=== PATIENT | female | born 1975 | race Caucasian/White ===

== ENCOUNTER 2020-09-14 18:14 | Emergency (ER) | payer OTHER, SELFPAY ==
--- NOTE | ~2020-09-14 | XR_ITS ---
EXAMINATION: XR chest 1V portable DATE: 09/14/2020 21:57 INDICATION: Shortness of breath. TECHNIQUE: A single frontal view of the chest was obtained. COMPARISON: Chest single view 07/30/2018 FINDINGS: The chest demonstrates clear lungs without pneumonia, pleural effusion, or pneumothorax. Th e heart size is normal. IMPRESSION: 1. No acute cardiopulmonary disease. Reviewed, dictated and finalized at location A. DENTIAL PROGRAM DIRECTOR
[2020-09-14 18:16] VITALS: BP 152/94; PULSE 116; RESP 20; TEMP 35.7; O2SAT 95
--- NOTE | 2020-09-14 18:19 | ECG_ITS ---
Measurements Intervals [place] Rate: 110 P: 56 [place]: 162 QRS: 53 QRSD: 73 T: 66 QT: 320 QTc: 433 Interpretive Statements SINUS TACHYCARDIA BASELINE WANDER- AVR, AVF, V1-V6 ABNORMAL ECG Electronically Signed On 09-15-2020 8:18:37 CLIP WRAPPER by Ras Wu D.O.
[2020-09-14 18:35] LABS: Basophils Absolute Auto 0.2 K/mm3 (0.0-0.1); Basophils Percent Auto 1.9 % (0.2-1.2); Eosinophils Percent Auto 8.9 % (0-4.4); Hematocrit 38.8 % (37.0-47.0); Hemoglobin 11.9 g/dL (12.0-15.0); Immature Granulocyte Absolute 0.05 K/mm3 (0.00-0.031); Immature Granulocyte Percent A 0.4 % (0-0.5); Lymphocytes Absolute Auto 3.77 K/mm3 (0.9-3.2); Lymphocytes Percent Auto 33.3 % (18.3-44.2); Mean Corpuscular HGB Conc 30.7 g/dl (32-36); Mean Corpuscular Hemoglobin 19.3 pg (26-34); Mean Corpuscular Volume 62.8 fl (80-100); Mean Platelet Volume 9.6 fl (7.4-10.4); Monocytes Percent Auto 9.2 % (2.6-8.5); Neutrophils Absolute Auto 5.3 K/mm3 (1.3-6.7); Neutrophils Percent Auto 46.3 % (45.5-73.1); Platelet Count Result 353 k/mm3 (150-375); Red Blood Count 6.18 M/mm3 (4.2-5.4); Red Cell Distribution Width 17.9 % (11.5-14.5); White Blood Count 11.3 K/mm3 (4.5-10.0)
[2020-09-14 18:47] LABS: Anion Gap 9 mmol/L (8-16); Blood Urea Nitrogen 9 mg/dL (7-17); Carbon Dioxide 25 mmol/L (22-30); Chloride 104 mmol/L (98-107); Estimated CRCL calculation 96 ml/min; Estimated Glomerular Filt Rate > 60; Glucose 106 mg/dL (65-105); Potassium 3.8 mmol/L (3.4-5.0); Sodium 138 mmol/L (137-145)
[2020-09-14] MEDS: ALBUTEROL SULFATE NEB 2.5 MG/0.5 ML INH 10 MG INHALATION (20:02)
[2020-09-14] MEDS: IPRATROPIUM BR 0.02% INH SOLN 0.5 MG/2.5 ML VIAL 1 MG INHALATION (20:02)
--- NOTE | 2020-09-14 20:08 | ED.SOB ---
HPI - SOB/Dyspnea General Chief Complaint: Shortness of Breath/Dyspnea Stated Complaint: Difficulty breathing Time Seen by Provider: 09/14/20 19:41 Related Data Allergies Allergy/AdvReac Type Severity Reaction Status Date / Time SHELLFISH Allergy Unknown Rash Uncoded 09/14/20 18:18 Review of Systems Review of Systems: All systems reviewed & are unremarkable except as noted in HPI and below Constitutional: Constitutional: Denies chills and Denies fever(s) ENT: Reports nasal congestion Cardiovascular: Cardiovascular: Denies chest pain and Denies radiating jaw, neck or arm pain Respiratory: Respiratory: Reports cough, Reports dyspnea and Reports wheezing Gastrointestinal: Gastrointestinal: Denies abdominal pain, Denies diarrhea, Denies nausea and Denies vomiting Integumentary/Breasts: Skin/Breast: Reports rash PMFSH Past Medical History Medical History (Updated 09/14/20 @ 20:08 by Evelyn Huynh MD) Asthma Surgical History Surgical History (Updated 09/14/20 @ 20:10 by Evelyn Huynh MD) H/O: hysterectomy History of back surgery Social History Social History (Updated 09/14/20 @ 20:11 by Evelyn Huynh MD) Smoking packs per day: 1 Smoking cigarettes per day: 20.0 Smoking status: Current every day smoker Substance use: never Exam Const: General: alert and ill appearing Orientation/consciousness: patient oriented x3 HENMT: Head: normocephalic and atraumatic Face and sinus: face symmetric Throat: posterior oropharynx normal Eyes: EOM: EOMs intact bilaterally Chest: Chest palpation & inspection: normal inspection of the chest Resp: Effort & Inspection: no retractions, tachypneic and no use of accessory muscles Auscultation: wheezes expiratory wheezes Other: able to speak in complete sentences Cardio: Rate: regular rate Rhythm: regular rhythm Heart sounds: no murmurs GI: GI Palp: Yes Soft to palpation, No Tenderness to palpation present (GI), No Guarding due to palpation present (GI) and No Rigid due to palpation Auscultation: normal bowel sounds Neuro: General: patient oriented x3 and moves all extremities Extrem: General: no pedal edema Course Vital Signs Vital signs: Vital Signs Temperature 96.3 F L 09/14/20 18:16 Pulse Rate 116 H 09/14/20 18:16 Respiratory Rate 20 09/14/20 18:16 Blood Pressure 152/94 H 09/14/20 18:16 Pulse Oximetry 95 09/14/20 18:16 Temperature 96.3 F L 09/14/20 18:16 Pulse Rate 116 H 09/14/20 18:16 Respiratory Rate 20 09/14/20 18:16 Blood Pressure 152/94 H 09/14/20 18:16 Pulse Oximetry 95 09/14/20 18:16 MDM - SOB/Dyspnea Lab Data Result diagrams: 09/14/20 18:28 09/14/20 18:28 Labs: Lab Results 09/14/20 09/14/20 Range/Units 18:28 18:28 WBC 11.3 H (4.5-10.0) K/mm3 RBC 6.18 H (4.2-5.4) M/mm3 Hgb 11.9 L (12.0-15.0) g/dL Hct 38.8 (37.0-47.0) % MCV 62.8 L (80-100) fl MCH 19.3 L (26-34) pg MCHC 30.7 L (32-36) g/dl RDW 17.9 H (11.5-14.5) % Plt Count 353 (150-375) k/mm3 MPV 9.6 (7.4-10.4) fl Immature Gran % (Auto) 0.4 (0-0.5) % Neut % (Auto) 46.3 (45.5-73.1) % Lymph % (Auto) 33.3 (18.3-44.2) % Butler % (Auto) 9.2 H (2.6-8.5) % Eos % (Auto) 8.9 H (0-4.4) % Baso % (Auto) 1.9 H (0.2-1.2) % Lymph # (Auto) 3.77 H (0.9-3.2) K/mm3 Butler # (Auto) 1.0 H (0.1-0.6) K/mm3 Eos # (Auto) 1.0 H (0-0.3) K/mm3 Baso # (Auto) 0.2 H (0.0-0.1) K/mm3 Abs Immat Gran (auto) 0.05 H (0.00-0.031) K/mm3 Absolute Neuts (auto) 5.3 (1.3-6.7) K/mm3 Absolute Nucleated RBC 0.0 (0.0-0.012) K/mm3 Nucleated RBC % 0.0 (0.0-0.2) % Sodium 138 (137-145) mmol/L Potassium 3.8 (3.4-5.0) mmol/L Chloride 104 (98-107) mmol/L Carbon Dioxide 25 (22-30) mmol/L Anion Gap 9 (8-16) mmol/L BUN 9 (7-17) mg/dL Creatinine 0.70 (0.7-1.0) mg/dL Estim Creat Clear Calc 96 ml/min Estimated GFR > 60 (59 - ) Gl
--- NOTE | 2020-09-14 20:12 | ED.SOB ---
HPI - SOB/Dyspnea General Chief Complaint: Shortness of Breath/Dyspnea Stated Complaint: Difficulty breathing Time Seen by Provider: 09/14/20 19:41 Source: patient Mode of arrival: ambulatory Limitations: no limitations History of Present Illness HPI Narrative: This patient is a 45 year old female smoker with history of asthma, COPD who presents for evaluation of shortness of breathing. She reports she has been dealing with a cough and shortness of breathing for 3 months. She has been dealing with her PCP over the phone and he has been prescribing her steroids and antibiotics for a diagnosis of bronchitis. Her symptoms seem to have worsened over the past few weeks. Over the past 2 nights she has been unable to sleep. She states she wakes up shortness of breath and coughing. She was able to check her oxygen and she reports her saturation was 76% and it roberto to 91%. She states she does not have covid. She denies fever, chills, nausea, vomiting, chest pain or diarrhea. Related Data Allergies Allergy/AdvReac Type Severity Reaction Status Date / Time SHELLFISH Allergy Unknown Rash Uncoded 09/14/20 18:18 Review of Systems Review of Systems: All systems reviewed & are unremarkable except as noted in HPI and below Constitutional: Constitutional: Denies chills and Denies fever(s) ENT: Reports nasal congestion Cardiovascular: Cardiovascular: Denies chest pain Respiratory: Respiratory: Reports cough, Reports dyspnea and Reports wheezing Gastrointestinal: Gastrointestinal: Denies abdominal pain, Denies diarrhea, Denies nausea and Denies vomiting PMFSH Past Medical History Medical History (Updated 09/15/20 @ 00:00 by Pelon Ocasio) Asthma Surgical History Surgical History (Updated 09/14/20 @ 20:10 by Evelyn Huynh MD) H/O: hysterectomy History of back surgery Social History Social History (Updated 09/14/20 @ 20:11 by Evelyn Huynh MD) Smoking packs per day: 1 Smoking cigarettes per day: 20.0 Smoking status: Current every day smoker Substance use: never Exam Const: General: alert Orientation/consciousness: patient oriented x3 HENMT: Head: normocephalic and atraumatic Face and sinus: face symmetric Mouth: Yes Normal oral and palatal mucosa present, Yes lip normal, Yes oropharynx normal and Yes moist mucous membranes Eyes: EOM: EOMs intact bilaterally Chest: Chest palpation & inspection: normal inspection of the chest Resp: Effort & Inspection: no retractions, tachypneic and no use of accessory muscles Auscultation: wheezes Cardio: Rate: regular rate Rhythm: regular rhythm Heart sounds: no murmurs GI: GI Palp: Yes Soft to palpation, No Tenderness to palpation present (GI), No Guarding due to palpation present (GI) and No Rigid due to palpation Auscultation: normal bowel sounds Neuro: General: patient oriented x3 and moves all extremities Extrem: General: no pedal edema Course Reevaluation(s) Reevaluation #1: Patient just finished a neb treatment . Her cough and wheezing are much improved. Date: 09/14/20 Time: 21:47 Vital Signs Vital signs: Vital Signs Temperature 96.3 F L 09/14/20 18:16 Pulse Rate 116 H 09/14/20 18:16 Respiratory Rate 20 09/14/20 18:16 Blood Pressure 152/94 H 09/14/20 18:16 Pulse Oximetry 95 09/14/20 18:16 Temperature 98.3 F 09/14/20 23:18 Pulse Rate 96 09/14/20 23:18 Respiratory Rate 18 09/14/20 23:18 Blood Pressure 113/74 09/14/20 23:18 Pulse Oximetry 95 09/14/20 23:18 MDM - SOB/Dyspnea Lab Data Attestation: I reviewed the patient's lab results. Result diagrams: 09/14/20 18:28 09/14/20 18:28 Labs: Lab Results 09/14/20 09/14/20 09/14/20 Range/Units 18:27 18:28 18:28 WBC 11.3 H (4.5-10.0) K/mm3 RBC 6.18 H (4.2-5.4) M/mm3 Hgb 11.9 L (12.0-15.0) g/dL Hct 38.8 (37.0-47.0) % MCV 62.8 L (80-100) fl MCH 19.3 L (26-34) pg MCHC 30.7 L (32-36
[2020-09-14 20:21] VITALS: PULSE 96; RESP 20
[2020-09-14 20:27] LABS: Alveolar/Arterial O2 Gradient 30.3 mmHg; Base Excess ABG -1.9 mEq/l (+/-2.0); Carboxyhemoglobin 3.4 % THb (0-2.0); Device ROOM AIR; Fractional Inspired Oxygen 21 %; HCO3 ABG 23.8 mEq/l (22.0-26.0); Methemoglobin ABG 0.3 %THb (0-1.5); Oxygen Content ABG 15.8 %vol (16.0-22.0); Oxygen Saturation ABG 92.3 % (95.0-100.0); Oxyhemoglobin 88.2 % THb (90.0-100.0); PO2 ABG 66.7 mmHg (80.0-100.0); PO2 FiO2 Ratio Arterial Blood 3.18 %; Reduced Hemoglobin 8.1 %THb (0-5.0); Site Drawn RIGHT BRACHIAL; Total Hemoglobin 12.7 g/dL (12.0-18.0); pH ABG 7.351 (7.350-7.450)
[2020-09-14] MEDS: predniSONE 20 MG TABLET 60 MG PO (20:41)
[2020-09-14] MEDS: LACTATED RINGERS 1,000 ML 999 ML IV CONT (20:56)
[2020-09-14 21:08] LABS: Alanine Aminotransferase 21 U/L (4-35); Alkaline Phosphatase 87 U/L (38-126); Aspartate Amino Transferase 28 U/L (14-36); Bilirubin,Total 0.4 mg/dL (0.2-1.3); Magnesium 2.4 mg/dL (1.6-2.3)
[2020-09-14 21:17] LABS: NT Pro B Type Natriuretic Pept 18 PG/ML (5-100)
[2020-09-14 21:24] VITALS: PULSE 101; RESP 18
[2020-09-14 23:18] VITALS: BP 113/74; PULSE 96; RESP 18; TEMP 36.8; O2SAT 95
== END 2020-09-14 23:20 | disposition home or self-care (01) ==
PROVIDERS: Emergency Medicine; Emergency Provider General Practice
DX: J44.1 Chronic obstructive pulmonary disease with (acute) exacerbation (principal); F17.210 Nicotine dependence, cigarettes, uncomplicated; R00.0 Tachycardia, unspecified
CPT/HCPCS: 36415; 36600; 71045; 80048; 80076; 82375; 82805; 83050; 83735; 83880; 85025; 93005; 94640; 96360; 99284; J7120; J7512

== ENCOUNTER 2020-09-26 07:34 | Outpatient (CLI) | payer OTHER, SELFPAY ==
--- NOTE | ~2020-09-26 | MM_ITS ---
EXAMINATION: MM screening [facility] BI w [facility] HISTORY: Screening mammogram TECHNIQUE: Craniocaudal and mediolateral oblique 3-D tomosynthesis images were obtained and synthetic 2-D images were generated. CAD analysis was submitted and interpreted. COMPARISON: No prior mammogram is available for comparison at this institution. BREAST PARENCHYMAL COMPOSITION: There are scattered areas of fibroglandular density. FINDINGS: There is a circumscribed irregularly shaped 9 mm mass lower outer left breast approximately 4 cm deep to the nipple. Diagnostic left mammogram and targeted left breast ultrasound examination a re recommended. Otherwise there is no evidence of suspicious mass, calcification, or architectural distortion to sugg est malignancy in either breast.. IMPRESSION: 1. 9 mm lower outer quadrant left breast mass 2. Diagnostic left mammogram and targeted left breast ultrasound examination are recommended. BI-RADS Category 0: Incomplete: Needs additional imaging evaluation. Reviewed, dictated and finalized at location A. SERVICE ATTENDANT IMPRESSION: 1. 9 mm lower outer quadrant left breast mass 2. Diagnostic left mammogram and targeted left breast ultrasound examination ar e recommended. BI-RADS Category 0: Incomplete: Needs additional imaging evaluation.
== END 2020-09-26 07:35 | disposition home or self-care (01) ==
LOC: ANHIMG 07:37
PROVIDERS: Visit Provider Physician Assistant
DX: Z12.31 Encounter for screening mammogram for malignant neoplasm of breast (principal); R92.8 Other abnormal and inconclusive findings on diagnostic imaging of breast
CPT/HCPCS: 77063; 77067

== ENCOUNTER 2020-09-30 11:50 | Outpatient (CLI) | payer OTHER, SELFPAY ==
--- NOTE | ~2020-09-30 | MMUS_ITS ---
EXAMINATION: MM diagnostic mammo unilat LT, US breast LT limited HISTORY: Follow-up left breast asymmetry TECHNIQUE: Additional 3-D tomosynthesis images of the left breast were performed and synthetic 2-D im ages were generated. CAD analysis was submitted and interpreted. High resolution left breast ultrasou nd was performed. COMPARISON: 09/26/2020 BREAST PARENCHYMAL COMPOSITION: There are scattered areas of fibroglandular density. FINDINGS: MAMMOGRAPHIC FINDINGS: There is a focal slightly lobulated 7 mm mass in the lower outer quadrant of the left breast anterior ly. No suspicious calcifications or architectural distortion. ULTRASOUND: Left breast ultrasound: At 7:00 there is an oval heterogeneous mass measuring 10 x 6 x 4 mm with inte rnal septation, no significant posterior features and no internal vascularity, most likely benign int ramammary lymph node. IMPRESSION: 1. Probable benign left breast mass at 7:00. 2. Recommend 6 month follow-up diagnostic left mammogram and ultrasound recommended. BI-RADS category 3, probably benign findings. Reviewed, dictated and finalized at location B. ORNE WEAPONS TECHNICAL MANAGER IMPRESSION: 1. Probable benign left breast mass at 7:00. 2. Recommend 6 month follow-up diagnostic left mammogram and ultrasound recomme nded. BI-RADS category 3, probably benign findings.
== END 2020-09-30 11:51 | disposition home or self-care (01) ==
LOC: ANHIMG 11:52
PROVIDERS: Visit Provider Physician Assistant
DX: N63.13 Unspecified lump in the right breast, lower outer quadrant (principal)
CPT/HCPCS: 76642; 77065

== ENCOUNTER 2020-10-06 06:18 | Emergency (ER) | payer OTHER, SELFPAY ==
--- NOTE | ~2020-10-06 | XR_ITS ---
EXAMINATION: XR chest 2V DATE: 10/06/2020 07:16 INDICATION: Asthma presenting with shortness of breath and cough TECHNIQUE: PA and lateral views of the chest were obtained. COMPARISON: Chest radiograph dated 09/14/2020 FINDINGS: The lungs are clear with no focal airspace opacities, pulmonary edema, pleural effusion or pneumothor ax. The cardiomediastinal silhouette is normal. Visualized bones and soft tissues are unremarkable. IMPRESSION: 1. No acute cardiopulmonary disease. Reviewed, dictated and finalized at location A. OL CONDUCTOR
[2020-10-06 06:24] VITALS: BP 132/75; PULSE 123; RESP 28; TEMP 36.8; O2SAT 96
[2020-10-06 06:30] VITALS: PULSE 96; RESP 20
[2020-10-06 06:31] VITALS: PULSE 102; RESP 20
[2020-10-06 06:48] LABS: Basophils Absolute Auto 0.1 K/mm3 (0.0-0.1); Basophils Percent Auto 1.2 % (0.2-1.2); Eosinophils Percent Auto 0.2 % (0-4.4); Hematocrit 39.1 % (37.0-47.0); Hemoglobin 11.6 g/dL (12.0-15.0); Immature Granulocyte Absolute 0.08 K/mm3 (0.00-0.031); Immature Granulocyte Percent A 0.9 % (0-0.5); Lymphocytes Absolute Auto 0.76 K/mm3 (0.9-3.2); Lymphocytes Percent Auto 8.1 % (18.3-44.2); Mean Corpuscular HGB Conc 29.7 g/dl (32-36); Mean Corpuscular Hemoglobin 18.6 pg (26-34); Mean Corpuscular Volume 62.8 fl (80-100); Mean Platelet Volume 9.7 fl (7.4-10.4); Monocytes Absolute Auto 0.1 K/mm3 (0.1-0.6); Monocytes Percent Auto 0.5 % (2.6-8.5); Neutrophils Absolute Auto 8.3 K/mm3 (1.3-6.7); Neutrophils Percent Auto 89.1 % (45.5-73.1); Platelet Count Result 379 k/mm3 (150-375); Red Blood Count 6.23 M/mm3 (4.2-5.4); Red Cell Distribution Width 17.5 % (11.5-14.5); White Blood Count 9.4 K/mm3 (4.5-10.0)
[2020-10-06] MEDS: IPRATROPIUM BR 0.02% INH SOLN 0.5 MG/2.5 ML VIAL INHALATION ×2 (06:48→09:26)
[2020-10-06] MEDS: ALBUTEROL SULFATE NEB 2.5 MG/3 ML INH 1.25 MG INHALATION (06:48)
[2020-10-06 06:57] LABS: Platelet Estimate Adequate (Adequate)
[2020-10-06 06:58] LABS: Anisocytosis 1+ (NORMAL)
[2020-10-06 06:59] LABS: Ovalocytes 1+ (NORMAL); Stomatocytes 1+ (NORMAL); Target Cells 1+ (NORMAL)
--- NOTE | 2020-10-06 07:07 | ECG_ITS ---
Measurements Intervals [place] Rate: 98 P: 61 [place]: 174 QRS: 63 QRSD: 85 T: 73 QT: 343 QTc: 439 Interpretive Statements SINUS RHYTHM BASELINE ARTIFACT- I, II, III, AVL, AVF, V5 NORMAL ECG Electronically Signed On 10-06-2020 8:21:35 SALES AND SERVICE SPECIALIST by Ras Wu D.O.
--- NOTE | 2020-10-06 07:07 | ED.ASTHMA ---
HPI - Asthma General Chief Complaint: Asthma Stated Complaint: SOB Time Seen by Provider: 10/06/20 07:05 Source: patient Mode of arrival: ambulatory Limitations: no limitations History of Present Illness HPI Narrative: Patient is a 45-year-old female complaining of asthma attack described as wheezing, cough that started yesterday. Patient states that she is used her albuterol inhalers and has not worked. Patient denies any chest pain, abdominal pain, nausea, vomiting, fever or chills. Related Data Allergies Allergy/AdvReac Type Severity Reaction Status Date / Time SHELLFISH Allergy Unknown Rash Uncoded 09/14/20 18:18 Review of Systems Review of Systems: All systems reviewed & are unremarkable except as noted in HPI and below Constitutional: Constitutional: Denies body ache(s), Denies chills, Denies excessive sweating, Denies fatigue, Denies fever(s), Denies headache(s), Denies lethargy, Denies malaise, Denies weakness and Denies weight loss Eyes: Eyes: Denies blurry vision, Denies change in vision and Denies loss of vision ENT: Denies dizziness, Denies ear discharge, Denies headache(s), Denies lip swelling, Denies epistaxis, Denies nasal congestion, Denies neck pain, Denies throat swelling and Denies tongue swelling Cardiovascular: Cardiovascular: Denies chest pain, Denies chest pain at rest, Denies chest pain with activity, Denies diaphoresis, Denies rapid heart rate, Denies edema, Denies irregular heart rhythm, Denies lightheadedness, Denies palpitations and Denies dyspnea on exertion Respiratory: Respiratory: Denies chest congestion and Denies hemoptysis Gastrointestinal: Gastrointestinal: Denies abdominal pain, Denies melena, Denies hematochezia, Denies diarrhea, Denies nausea, Denies vomiting and Denies hematemesis Musculoskeletal: Musculoskeletal: Denies abnormal gait, Denies deformity, Denies joint swelling, Denies limited range of motion, Denies neck pain and Denies numbness Neurologic: Denies Abnormal speech present, Denies abnormal gait, Denies confusion, Denies dizziness, Denies headache(s), Denies focal weakness, Denies loss of vision, Denies numbness, Denies Other visual disturbances, Denies Sensory deficit (Neuro) and Denies weakness Psychiatric: Psychiatric: Denies confusion, Denies depression, Denies auditory hallucinations, Denies homicidal ideation and Denies suicidal ideation Endocrine: Endocrine: Denies cold intolerance, Denies excessive sweating, Denies fatigue, Denies heat intolerance and Denies palpitations Hematologic/Lymphatic: Hematologic/Lymphatic: Denies easy bleeding and Denies easy bruising Allergic/Immunologic: Allergic/Immunologic: Denies lip swelling, Denies throat swelling and Denies tongue swelling PMFSH Past Medical History Medical History (Updated 10/06/20 @ 10:00 by Dom Oneill MD) Asthma Surgical History Surgical History (Updated 09/14/20 @ 20:10 by Evelyn Huynh MD) H/O: hysterectomy History of back surgery Social History Social History (Updated 09/14/20 @ 20:11 by Evelyn Huynh MD) Smoking packs per day: 1 Smoking cigarettes per day: 20.0 Smoking status: Current every day smoker Substance use: never Exam Const: General: cooperative, healthy appearing, comfortable, well developed, alert and awake; No confusion Orientation/consciousness: oriented to person, oriented to place, oriented to time, patient oriented x3 and No confusion Limitations: no limitations HENMT: Head: normal to inspection, normocephalic and atraumatic Ears: hearing grossly normal bilaterally, TM normal on the right and TM normal on the left General nose exam: Normal external nose present, Normal nares present and No nasal discharge present Face and sinus: normal facial exam Mouth: Yes Normal oral and palatal mucosa present, Yes lip normal, Yes tongue normal and Yes oropharynx normal Throat: posterior oropharynx normal, tonsils normal and uvula midline Eyes: General: appeara
[2020-10-06 07:16] LABS: Anion Gap 4 mmol/L (8-16); Blood Urea Nitrogen 8 mg/dL (7-17); Calcium 9.3 mg/dL (8.4-10.2); Carbon Dioxide 28 mmol/L (22-30); Chloride 106 mmol/L (98-107); Estimated CRCL calculation 79 ml/min; Estimated Glomerular Filt Rate > 60; Glucose 146 mg/dL (65-105); Potassium 4.1 mmol/L (3.4-5.0); Sodium 138 mmol/L (137-145)
[2020-10-06 07:47] LABS: NT Pro B Type Natriuretic Pept 85 PG/ML (5-100); Troponin I < 0.012 ng/mL (0.000-0.034)
[2020-10-06] MEDS: ALBUTEROL SULFATE NEB 2.5 MG/0.5 ML INH 5 MG INHALATION (09:26)
[2020-10-06 09:27] VITALS: PULSE 83; RESP 23
== END 2020-10-06 10:31 | disposition home or self-care (01) ==
PROVIDERS: Emergency Medicine; Emergency Provider Emergency Medicine
DX: J45.901 Unspecified asthma with (acute) exacerbation (principal); F17.200 Nicotine dependence, unspecified, uncomplicated
CPT/HCPCS: 36415; 71046; 80048; 83880; 84484; 85025; 93005; 94640; 99284

== ENCOUNTER 2021-04-10 14:47 | Outpatient (CLI) | payer OTHER, SELFPAY ==
--- NOTE | ~2021-04-10 | US_ITS ---
US breast LT limited DATE: 04/10/2021 15:12 INDICATION: Six-month follow-up of probable benign left breast mass at 7:00 TECHNIQUE: High-resolution ultrasound imaging targeted at 6/8 o'clock COMPARISON: 09/30/2020 diagnostic left mammogram and limited left breast ultrasound examination 09/26/2020 bilateral digital screening mammogram FINDINGS: Circumscribed parallel hypoechoic approximately 3.5 x 9 mm opacity is again noted, appearin g relatively stable compared to 09/26/2020 screening mammogram in 09/30/2020 diagnostic left mammogram and limited left breast ultrasound examinations. This is likely a stable benign intramammary lymph n ode. There is a rounded hypoechoic 2.2 x 2 x 2.6 mm area at C7-8:00 1 cm from the nipple, without internal vascularity or posterior shadowing, probably benign. Six-month diagnostic left mammogram and targete d left breast ultrasound follow-up is recommended. IMPRESSION: BI-RADS Category 3: Probably benign Recommendation: 6 month diagnostic left mammogram and targeted 7-8:00 left breast ultrasound follow-u p is recommended Reviewed, dictated and finalized at Location A. Reviewed, dictated and finalized at location A. IMPRESSION: BI-RADS Category 3: Probably benign Recommendation: 6 month diagnostic left mammogram and targeted 7-8:[address] ultrasound follow-up is recommended
== END 2021-04-10 14:48 | disposition home or self-care (01) ==
LOC: ANHIMG 14:49
PROVIDERS: Visit Provider Physician Assistant
DX: N63.24 Unspecified lump in the left breast, lower inner quadrant (principal)
CPT/HCPCS: 76642

== ENCOUNTER 2022-11-14 04:38 | Emergency (ER) | payer OTHER, SELFPAY ==
[2022-11-14] VITALS (8 sets, daily range): BP systolic 102–140; BP diastolic 56–71; PULSE 74–118; RESP 16–23; TEMP 38.1; O2SAT 93–99
--- NOTE | ~2022-11-14 | CT_ITS ---
EXAMINATION: CT abdomen pelvis w con DATE: 11/14/2022 06:31 INDICATION: Fever, dysuria and lower abdominal pain TECHNIQUE: Computed tomography (CT) of the abdomen and pelvis was performed with 100 mL Omnipaque-350 intravenous contrast. Automated exposure control and iterative reconstruction technique were employe d. The dose-length product was 1356.61 mGy-cm. COMPARISON: None FINDINGS: Mild lingular atelectasis. Heart size is normal. No pericardial or pleural effusion. Gallstones in th e dependent aspect of the otherwise normal gallbladder. Subcentimeter low-attenuation likely hepatic cyst. Spleen, pancreas, bilateral adrenal glands and kidneys are normal. Small amount of fluid scatte red throughout the colon consistent with diarrhea. Small bowel and appendix are normal. Bladder is de compressed. The uterus is not identified and has likely been surgically resected. Bilateral adnexa ar e unremarkable. No free intraperitoneal gas or fluid. No pathologically enlarged abdominal or pelvic lymphadenopathy. 8 mm anterolisthesis L5 on S1. L5 laminectomy and combined instrumented L5-S1 anteri or and posterior spinal fusion with interbody bone graft cage and bilateral vertical amparo and pedicle screw fixation. IMPRESSION: 1. Small amount of fluid in the colon consistent with nonspecific diarrhea. No other acute intra-abdo dorie/pelvic process. 2. Cholelithiasis. Reviewed, dictated and finalized at location A. AIN ROOM SERVICE IMPRESSION: 1. Small amount of fluid in the colon consistent with nonspecific diarrhea. No other acute intra-abdominal/pelvic process. 2. Cholelithiasis.
--- NOTE | ~2022-11-14 | XR_ITS ---
EXAMINATION: XR chest 2V DATE: 11/14/2022 05:57 INDICATION: Cough and fever TECHNIQUE: PA and lateral views of the chest were obtained. COMPARISON: Chest radiograph dated 10/06/2020 FINDINGS: Unchanged small left paracardial fat pad with minimal lingular atelectasis. No other airspace opaciti es, pulmonary edema, pleural effusion or pneumothorax. The cardiomediastinal silhouette is normal. Vi sualized bones and soft tissues are unremarkable. IMPRESSION: 1. No acute cardiopulmonary disease. Reviewed, dictated and finalized at location A. NGUAL KINDERGARTEN TEACHER
--- NOTE | 2022-11-14 05:03 | ED.FEVER ---
HPI - Fever General Chief Complaint: Fever Stated Complaint: fever Time Seen by Provider: 11/14/22 04:49 History of Present Illness HPI Narrative: This is a 47-year-old female with past medical history of COPD, presenting to the emergency department complaining of fever, abdominal pain and myalgias for the past day. She states she began having diffuse pain of all joints and muscles, rated 5/10. She then developed fevers reaching 102 degrees that intermittently responded to Tylenol. She woke this morning approximately an hour ago and noted lower abdominal pain and dysuria. She denies vomiting or diarrhea. She denies any known sick contacts. She is vaccinated for COVID but not for flu Related Data Allergies Allergy/AdvReac Type Severity Reaction Status Date / Time SHELLFISH Allergy Unknown Rash Uncoded 11/14/22 04:48 Review of Systems Review of Systems: CONSTITUTIONAL: Fevers and chills denies sweats. EYES: Denies visual changes, redness, or discharge. ENT: Denies rhinorrhea, congestion, sore throat, or otalgia. CARDIOVASCULAR: Denies chest pain, palpitations, or edema. RESPIRATORY: Nonproductive cough, wheezing denies dyspnea. GASTROINTESTINAL: Bilateral lower abdominal pain denies nausea, vomiting, or diarrhea. GENITOURINARY: Dysuria denies hematuria. SKIN: Denies rash or itching. MUSCULOSKELETAL: Diffuse joint pain and myalgias denies back pain, NEUROLOGIC: Headache denies numbness, dizziness, or weakness. PSYCHIATRIC: Denies anxiety or depression. PMFSH Past Medical History Medical History Asthma Surgical History Surgical History H/O: hysterectomy History of back surgery Social History Social History Smoking packs per day: 1 Smoking cigarettes per day: 20.0 Smoking status: Current every day smoker Substance use: never Exam Narrative: GENERAL: Well-developed, well-nourished, appears uncomfortable HEAD: Normocephalic, atraumatic. EYES: PERRLA and EOMI. ENT: Nares clear, no rhinorrhea or epistaxis. Mucous membranes moist. Oropharynx without tonsillar hypertrophy exudate or other lesions. NECK: Supple. No adenopathy or masses. No carotid bruits or JVD CHEST: Diffuse expiratory wheeze with good aeration. No respiratory distress. No rales or rhonchi HEART: Tachycardic regular rhythm. No murmur heard. Normal peripheral pulses. ABDOMEN: Soft, tender to palpation, greatest in the bilateral suprapubic region without rebound or guarding, nondistended, normal active bowel sounds. No CVA tenderness to palpation EXTREMITIES: Normal range of motion. No edema. SKIN: Warm, dry, no rash. NEURO: No focal deficits. Alert and oriented x3. PSYCH: Normal mood and affect. Course MANAGER CALL CENTER/PA Physician Supervision 07:10 - White blood cell count elevated to 18. Chemistries unremarkable. UA demonstrates proteinuria without other obvious changes. Patient tested negative for influenza and COVID. Chest x-ray was nonconcerning for acute cardiopulmonary process. CT abdomen pelvis also negative for acute process. Given the patient's suprapubic pain, will treat with cephalosporins. Discussed return emergency precautions including signs/symptoms of acute abdomen and intractable vomiting. The patient voiced understanding and is comfortable with the plan. All questions answered to her satisfaction. Vital Signs Vital signs: Vital Signs Temperature 100.5 F H 11/14/22 04:42 Pulse Rate 118 H 11/14/22 04:42 Respiratory Rate 18 11/14/22 04:42 Blood Pressure 124/67 11/14/22 04:42 Pulse Oximetry 11/14/22 04:42 Oxygen Delivery Room Air 11/14/22 04:42 Temperature 100.5 F H 11/14/22 04:42 Pulse Rate 118 H 11/14/22 04:42 Respiratory Rate 18 11/14/22 04:42 Blood Pressure 124/67 11/14/22 04:42 Pulse Oximetry 95 11/14/22 04:51 Oxygen Del
[2022-11-14] MEDS: ONDANSETRON INJ 4 MG/2 ML VIAL IV PUSH (05:15)
[2022-11-14] MEDS: SODIUM CHLORIDE 0.9% IV 1,000 ML 999 ML IV CONT (05:18)
[2022-11-14 05:27] LABS: Basophils Absolute Auto 0.1 K/mm3 (0.0-0.1); Basophils Percent Auto 0.7 % (0.2-1.2); Eosinophils Percent Auto 0.1 % (0-4.4); Hematocrit 38.3 % (37.0-47.0); Hemoglobin 11.8 g/dL (12.0-15.0); Immature Granulocyte Absolute 0.16 K/mm3 (0.00-0.031); Immature Granulocyte Percent A 0.9 % (0-0.5); Lymphocytes Absolute Auto 2.92 K/mm3 (0.9-3.2); Lymphocytes Percent Auto 15.9 % (18.3-44.2); Mean Corpuscular HGB Conc 30.8 g/dl (32-36); Mean Corpuscular Hemoglobin 18.7 pg (26-34); Mean Corpuscular Volume 60.6 fl (80-100); Mean Platelet Volume 9.5 fl (7.4-10.4); Monocytes Absolute Auto 1.5 K/mm3 (0.1-0.6); Monocytes Percent Auto 8.1 % (2.6-8.5); Neutrophils Absolute Auto 13.6 K/mm3 (1.3-6.7); Neutrophils Percent Auto 74.3 % (45.5-73.1); Platelet Count Result 278 k/mm3 (150-375); Red Blood Count 6.32 M/mm3 (4.2-5.4); Red Cell Distribution Width 18.2 % (11.5-14.5); White Blood Count 18.3 K/mm3 (4.5-10.0)
[2022-11-14] MEDS: IPRATROPIUM BR 0.02% INH SOLN 0.5 MG/2.5 ML VIAL INHALATION (05:31)
[2022-11-14] MEDS: ALBUTEROL SULFATE NEB 2.5 MG/3 ML INH 5 MG INHALATION (05:31)
[2022-11-14 05:37] LABS: Chloride 98 mmol/L (98-107)
[2022-11-14 05:40] LABS: Alanine Aminotransferase 21 U/L (6-35); Albumin Level 4.6 g/dL (3.5-5.1); Alkaline Phosphatase 93 U/L (38-126); Anion Gap 7 mmol/L (8-16); Aspartate Amino Transferase 25 U/L (14-36); Bilirubin,Total 0.6 mg/dL (0.2-1.3); Blood Urea Nitrogen 10 mg/dL (7-17); Calcium 8.5 mg/dL (8.4-10.2); Carbon Dioxide 25 mmol/L (22-30); Estimated CRCL calculation 81 ml/min; Estimated Glomerular Filt Rate > 60; Glucose 125 mg/dL (65-110); Potassium 4.2 mmol/L (3.4-5.0); Sodium 130 mmol/L (137-145)
[2022-11-14 05:58] LABS: Appearance Urine Slightly Cloudy (Clear); Bilirubin Urine 1+ (Negative); Blood Urine 2+ (Negative); Color Urine Yellow (Yellow); Glucose Urine UA Negative (Negative); Ketones Urine Negative (Negative); Leukocyte Esterase Ur Negative LEU/UL (Negative); Nitrate Urine Negative (Negative); Protein Urine 1+ mg/dL (Negative); Specific Grav Ur >= 1.030 (1.001-1.035); Urobilinogen Urine 0.2 mg/dL (<2.0); pH Urine 5.5 (5.0-9.0)
[2022-11-14 06:00] LABS: Microcytosis 1+ (NORMAL); Platelet Estimate Adequate (Adequate); Schistocytes None Seen (NORMAL)
[2022-11-14 06:04] LABS: Influenza A QL RT-PCR Negative (Negative); Influenza B QL RT-PCR Negative (Negative); SARS-CoV-2 RNA PCR Negative
[2022-11-14 06:32] LABS: Mucus Urine Moderate /lpf; RBC Urine 0-2 /hpf (0-2); Squamous Epithelial Cell Urine Rare /hpf (Few)
[2022-11-14 07:43] LABS: Add Urine Microscopic? YES
== END 2022-11-14 08:00 | disposition home or self-care (01) ==
PROVIDERS: Emergency Provider Preventive Medicine Aerospace Medicine
DX: J44.1 Chronic obstructive pulmonary disease with (acute) exacerbation (principal); N39.0 Urinary tract infection, site not specified; R10.32 Left lower quadrant pain; R10.31 Right lower quadrant pain; Z20.822 Contact with and (suspected) exposure to COVID-19; Z90.710 Acquired absence of both cervix and uterus; F17.210 Nicotine dependence, cigarettes, uncomplicated
CPT/HCPCS: 36415; 71046; 74177; 80053; 81001; 85025; 87636; 94640; 96361; 96365; 96367; 96375; 99284; J0131; J0696; J2405; J7030; Q9967

== ENCOUNTER 2022-11-15 11:37 | Emergency (ER) | payer OTHER, SELFPAY ==
[2022-11-15 11:39] VITALS: BP 136/84; PULSE 87; RESP 20; TEMP 36.3; O2SAT 97
[2022-11-15 11:53] VITALS: RESP 20; O2SAT 98
--- NOTE | 2022-11-15 12:51 | ED.GENADULT ---
HPI - General Adult General Chief complaint: Unspecified Stated complaint: difficulty swallowing - neck swelling Time Seen by Provider: 11/15/22 12:11 Source: patient Mode of arrival: ambulatory Limitations: no limitations History of Present Illness HPI narrative: 47 years old white female came to the emergency room today with sore throat, difficulty swallowing, and neck pain. Patient was seen in our emergency room yesterday and was discharged with urinary tract infection. Discharged on Keflex. Patient reports that her temperature is improving but woke up this morning with the above symptoms. Patient reports runny nose, sneezing, postnasal discharge and nasal congestion. Patient denies sick contact. Patient is concerned about the leukocytosis. Her white count yesterday was 18 and patient is very concerned about it.. Related Data Allergies Allergy/AdvReac Type Severity Reaction Status Date / Time SHELLFISH Allergy Unknown Rash Uncoded 11/15/22 11:38 Review of Systems Review of Systems: All systems reviewed & are unremarkable except as noted in HPI and below PMFSH Past Medical History Medical History Asthma Surgical History Surgical History H/O: hysterectomy History of back surgery Social History Social History Smoking packs per day: 1 Smoking cigarettes per day: 20.0 Smoking status: Current every day smoker Substance use: never Exam Narrative: General appearance: Well-developed, well-nourished Skin: Normal color Head: Normocephalic, nontraumatic Eyes: Clear conjunctiva ENT: Oropharyngeal erythema, diffuse tenderness of the neck bilaterally, submandibular. Neck: Supple, nontender Chest and respiratory: Airway patent, no respiratory distress, no accessory muscle use Heart: Regular rate/rhythm Abdomen: Soft, nontender, no organomegaly, quiet bowel sounds Vascular: Normal peripheral pulses, normal capillary refill. Musculoskeletal: Normal range of motion, nontender back Neurologic: Alert and oriented ?3, HA[employer] is normal as tested, no gross motor deficit Course Vital Signs Vital signs: Vital Signs Temperature 36.3 C L 11/15/22 11:39 Pulse Rate 87 11/15/22 11:39 Respiratory Rate 20 11/15/22 11:39 Blood Pressure 136/84 11/15/22 11:39 Pulse Oximetry 97 11/15/22 11:39 Oxygen Delivery Room Air 11/15/22 11:39 Temperature 36.3 C L 11/15/22 11:39 Pulse Rate 87 11/15/22 11:39 Respiratory Rate 20 11/15/22 11:53 Blood Pressure 136/84 11/15/22 11:39 Pulse Oximetry 98 11/15/22 11:53 Oxygen Delivery Room Air 11/15/22 11:39 Medical Decision Making MDM Narrative Medical decision making narrative: Patient is 47 years old white female came to the emergency room with difficulty swallowing and sore throat and neck pain. Patient was seen in our emergency room yesterday and was discharged on Keflex for urinary tract infection. Physical examination showed diffuse oropharyngeal erythema, diffuse tenderness submandibular lymphadenopathy bilaterally. Rapid strep, mono, CBC and CMP ordered. Patient tested positive for strep. 1,200,000 mg penicillin G was ordered IM. Patient was notified to stop the Keflex at home. And to take Tylenol, ibuprofen as needed. Strep throat plus upper respiratory viral infection is my concern. The pt was discharged to home.the pt,s condition upon discharge was fair,education was provided to the pt in reference to the final impression,discharge study results,treatment,prognosis and need for follow up . Differential Diagnosis
[2022-11-15 13:23] LABS: Basophils Absolute Auto 0.1 K/mm3 (0.0-0.1); Basophils Percent Auto 1.1 % (0.2-1.2); Eosinophils Absolute Auto 0.2 K/mm3 (0-0.3); Eosinophils Percent Auto 1.8 % (0-4.4); Hematocrit 35.9 % (37.0-47.0); Hemoglobin 10.9 g/dL (12.0-15.0); Immature Granulocyte Absolute 0.06 K/mm3 (0.00-0.031); Immature Granulocyte Percent A 0.5 % (0-0.5); Lymphocytes Absolute Auto 1.89 K/mm3 (0.9-3.2); Lymphocytes Percent Auto 15.1 % (18.3-44.2); Mean Corpuscular HGB Conc 30.4 g/dl (32-36); Mean Corpuscular Hemoglobin 18.6 pg (26-34); Mean Corpuscular Volume 61.4 fl (80-100); Monocytes Absolute Auto 1.2 K/mm3 (0.1-0.6); Monocytes Percent Auto 9.3 % (2.6-8.5); Neutrophils Absolute Auto 9.1 K/mm3 (1.3-6.7); Neutrophils Percent Auto 72.2 % (45.5-73.1); Platelet Count Result 270 k/mm3 (150-375); Red Blood Count 5.85 M/mm3 (4.2-5.4); White Blood Count 12.5 K/mm3 (4.5-10.0)
[2022-11-15 13:33] LABS: Alanine Aminotransferase 21 U/L (6-35); Alkaline Phosphatase 90 U/L (38-126); Anion Gap 3 mmol/L (8-16); Aspartate Amino Transferase 25 U/L (14-36); Bilirubin,Total 0.4 mg/dL (0.2-1.3); Blood Urea Nitrogen 7 mg/dL (7-17); Calcium 8.5 mg/dL (8.4-10.2); Carbon Dioxide 31 mmol/L (22-30); Chloride 99 mmol/L (98-107); Estimated CRCL calculation 102 ml/min; Estimated Glomerular Filt Rate > 60; Glucose 113 mg/dL (65-110); Potassium 4.1 mmol/L (3.4-5.0); Sodium 133 mmol/L (137-145)
[2022-11-15 13:44] LABS: Anisocytosis 1+ (NORMAL); Hypochromasia 3+ (NORMAL); Microcytosis 2+ (NORMAL); Platelet Estimate Adequate (Adequate); Schistocytes None Seen (NORMAL)
[2022-11-15 13:46] LABS: Strep Group A RT-PCR DETECTED (Negative)
[2022-11-15 14:10] LABS: Monoscreen Negative (Negative); Negative Monotest Control Negative (Negative); Positive Monotest Control Positive (Positive)
[2022-11-15] MEDS: PENICILLIN G BENZATHINE 1,200,000 UNITS/2 ML SYRINGE 1200000 UNITS IM (14:29)
== END 2022-11-15 14:33 | disposition home or self-care (01) ==
PROVIDERS: Emergency Provider Emergency Medicine
DX: J02.0 Streptococcal pharyngitis (principal); J45.909 Unspecified asthma, uncomplicated; F17.210 Nicotine dependence, cigarettes, uncomplicated
CPT/HCPCS: 80053; 85025; 86308; 87651; 96372; 99283; J0561

== ENCOUNTER 2023-07-12 10:11 | Outpatient (CLI) | payer OTHER, SELFPAY ==
--- NOTE | 2023-07-12 11:30 | NEURO_ITS ---
PATIENT NUMBER; [id number] IMPRESSION: # Complains of numbness of upper extermitity. # Mild left Carpal Tunnel Syndrome # Normal needle exam. # Clinical correlation recommended higher involvement to be ruled out. MTDD
== END 2023-07-12 10:12 | disposition home or self-care (01) ==
PROVIDERS: Visit Provider Physician Assistant
DX: M54.2 Cervicalgia (principal); R20.0 Anesthesia of skin; G56.02 Carpal tunnel syndrome, left upper limb
CPT/HCPCS: 95886; 95911